=== PATIENT | female | born 1995 | race Caucasian/White ===

== ENCOUNTER 2023-01-13 08:03 | Emergency (ER) | payer OTHER ==
[~2023-01-13] VITALS: Ht 154.9 cm; Wt 50.9 kg
[2023-01-13 08:06] VITALS: TEMP 98.5
[2023-01-13] MEDS ORDERED: ILOTYCIN5 MG/GM OP (08:44)
[2023-01-13 08:55] VITALS: BP 126/62; PULSE 80
== END 2023-01-13 08:55 | disposition home or self-care (01) ==
LOC: COL.ER 08:03
DX: H01.001 Unspecified blepharitis right upper eyelid (principal)

== ENCOUNTER → 2023-11-10 | Outpatient (CLI) | payer OTHER ==
[~2023-11-10] MED LIST: ILOTYCIN5 MG/GM OP; Iohexol 300 - 10 ML VIAL IV ONE
== END ==
LOC: COL.RAD 08:23
DX: N97.1 Female infertility of tubal origin (principal)
CPT/HCPCS: Q9967